=== PATIENT | female | born 1980 | race Caucasian/White ===

== ENCOUNTER 2016-04-12 10:28 | Emergency (ER) | payer MEDICAID ==
[2016-04-12 11:53] LABS: BASOPHILS 0.2 % (0.0-2.0); EOSINOPHILS 1.1 % (0-7); HEMATOCRIT 39.4 % (36.0-48.0); HEMOGLOBIN 12.6 g/dL (12-16); IMMATURE GRANULOCYTES 0.3 % (0-5); LYMPHOCYTES 16.7 % (15-50); MCH 26.8 pg (26.0-34.0); MCV 83.8 fL (80.0-100.0); MEAN PLATELET VOLUME 9.1 fL (7.4-10.4); MONOCYTES 4.9 % (2-11); NEUTROPHILS 76.8 % (40-80); PLATELET COUNT 276 10x3/uL (130-400); RDW 15.8 % (11.5-14.5); WBC 11.1 10x3/uL (4.8-10.8)
[2016-04-12 12:11] LABS: ALBUMIN 3.6 g/dL (3.4-5.0); ALKALINE PHOSPHATASE 59 U/L (46-116); ALT (SGPT) 21 U/L (10-68); BILIRUBIN - TOTAL 0.48 mg/dL (0.2-1.3); CALC OSMOLALITY 275 mosm/kg (275-300); CALCIUM 9.3 mg/dL (8.5-10.1); CARBON DIOXIDE 30.7 mmol/L (21.0-32.0); CHLORIDE - SERUM 101 mmol/L (98-107); CREATININE - SERUM 0.9 mg/dL (0.6-1.3); GLUCOSE 120 mg/dL (74-106); PROTEIN - SERUM 6.6 g/dL (6.4-8.2); SODIUM 137 mmol/L (136-145); UREA NITROGEN 16 mg/dL (7-18); eGFR NON AFRICAN AMERICAN 76 mL/min (90-120)
[2016-04-12 14:01] LABS: APPEARANCE HAZY (CLEAR); BILIRUBIN NEGATIVE (NEGATIVE); COLOR YELLOW (YELLOW); GLUCOSE NEGATIVE (NEGATIVE); KETONE NEGATIVE (NEGATIVE); LEUKOCYTE ESTERASE NEGATIVE (NEGATIVE); NITRITE NEGATIVE (NEGATIVE); PROTEIN NEGATIVE (NEGATIVE); UROBILINOGEN NORMAL (NORMAL)
== END 2016-04-12 14:39 | disposition home or self-care (01) ==
LOC: D.ER 10:28
PROVIDERS: Emergency Medicine
DX: M54.16 Radiculopathy, lumbar region (principal)

== ENCOUNTER 2018-01-03 14:28 | Emergency (ER) | payer MEDICAID ==
[~2018-01-03] VITALS: Ht 154.9 cm; Wt 86.4 kg
[2018-01-03 14:40] VITALS: Ht 154.9 cm; Wt 86.4 kg
[2018-01-03] MEDS ORDERED: TYLENOL W/CODEI1 TAB PO (16:44)
[2018-01-03] MEDS ORDERED: VOLTAREN75 MG PO (16:44)
[2018-01-03 16:54] VITALS: BP 146/90
== END 2018-01-03 16:55 | disposition home or self-care (01) ==
LOC: D.ER 14:28
DX: S00.83XA Contusion of other part of head, initial encounter (principal); W55.12XA Struck by horse, initial encounter; Y93.89 Activity, other specified; Y92.89 Other specified places as the place of occurrence of the external cause; R51 Headache